=== PATIENT | male | born 1960 | race Caucasian/White ===

== ENCOUNTER 2021-04-22 21:52 | Emergency (ER) | payer BC, SELFPAY ==
[2021-04-22 21:57] VITALS: BP 170/100; O2SAT 100
[2021-04-22 22:01] VITALS: BP 144/94; PULSE 109; RESP 18; TEMP 36.6; O2SAT 100; BMI 36.0
[2021-04-23] MEDS: Famotidine/PF 20 MG/2 ML VIAL IVPUSH (00:17)
[2021-04-23] MEDS: diphenhydrAMINE HCL 50 MG/ML VIAL 25 MG IVPUSH (00:17)
[2021-04-23] MEDS: dexAMETHasone sod phosphate 10 MG/ML VIAL IVPUSH (00:17)
--- NOTE | 2021-04-23 00:34 | ED_ITS ---
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 no difficulty in breathing no tongue or lip swelling patient was given Benadryl by EMS and still having the rash and itching all over no history of similar rash in the past Related Data Previous Rx's Medication Instructions Recorded diphenhydramine HCl 25 mg capsule 50 mg PO Q6H PRN #30 cap 04/23/21 (Benadryl) famotidine 20 mg tablet (Pepcid AC) 20 mg PO DAILY #14 tab 04/23/21 prednisone 20 mg tablet 40 mg PO DAILY #10 tab 04/23/21 Allergies Allergy/AdvReac Type Severity Reaction Status Date / Time No Known Allergies Allergy Verified 04/22/21 23:53 Review of Systems Review of Systems: Yes all other systems are reviewed and are negative [facility] Past Medical History Medical History HLD (hyperlipidemia) HTN (hypertension) Social History Social History Advance Directives: No Physical Exam Vital Signs: Vital Signs: Last Vital Signs Temp 98 F 04/22/21 22:01 Pulse 87 04/23/21 00:51 Resp 20 04/23/21 00:51 BP 128/86 04/23/21 00:51 Pulse Ox 96 04/23/21 00:51 BMI result Body Mass Index 36.0 Appearance: Alert. Oriented X3. No acute distress. ENT: Pharynx normal. Oral Mucosa moist tongue and lips are normal Neck: Normal inspection. Neck supple. CVS: Normal heart rate and rhythm. Pulses normal. Respiratory: No respiratory distress. Equal air entry bilateral, no wheezing/rales/rhonchi Abdomen: Soft and nontender. Bowel sounds are present, no mass palpable, no CVA tenderness Skin: Diffuse reticular rash all over the torso groin area chest and arm Extremities: No lower extremity edema. No calf tenderness Neuro: Oriented X 3. Discharge Plan Discharge Clinical Impression: Urticaria Patient Disposition: Home, Self-Care Instructions: Urticaria (ED) Additional Instructions: Etiology of her rash is not clear Take Benadryl 50 mg every 6 hours as needed Prednisone as prescribed Pepcid 1 tablet daily Report to the ER if rash continues to get worse/shortness of breath/lips or tongue swelling Prescriptions: New prednisone 20 mg tablet 40 mg PO DAILY Qty: 10 0RF famotidine [Pepcid AC] 20 mg tablet 20 mg PO DAILY Qty: 14 0RF diphenhydramine HCl [Benadryl] 25 mg capsule 50 mg PO Q6H PRN (Reason: allergic reaction) Qty: 30 0RF
[2021-04-23 00:51] VITALS: BP 128/86; PULSE 87; RESP 20; O2SAT 96
[2021-04-23] MEDS: EPINEPHrine 1 MG/ML VIAL 0.3 MG IM (01:01)
--- NOTE | 2021-04-23 01:03 | PC.NURSE ---
PT MOVED TO MAIN ED PLACED ON MONITOR REPORT GIVEN TO TANIA ORTA. PT UPDATED IN WAITING ROOM.
== END 2021-04-23 01:55 | disposition home or self-care (01) ==
PROVIDERS: Emergency Provider Internal Medicine; PCP Internal Medicine
DX: L50.9 Urticaria, unspecified (principal)
CPT/HCPCS: 96372; 96374; 96375; 99284; J0171; J1100; J1200